=== PATIENT | male | born 1985 | race Asian ===

== ENCOUNTER 2023-04-02 08:00 | Outpatient (CLI) | payer MEDICAID ==
--- NOTE | 2023-04-03 14:00 | XRAY Report ---
PROCEDURE: Foot 3 View BILAT INDICATIONS: PAIN IN LEFT FOOT TECHNIQUE: 3 views of the foot were acquired. COMPARISON: None. FINDINGS: Bones: No fractures or dislocations. No suspicious bony lesions. Soft tissues: No suspicious soft tissue calcifications or masses. IMPRESSION: No visualized acute fracture or dislocation. However, occult injury cannot be excluded. Recommend basil rt interval imaging follow-up in 7-10 days as clinically indicated for additional evaluation. Reviewed by: Jeanna Anna MD on 04/03/2023 1:59 PM PDT Approved by: Jeanna Anna MD on 04/03/2023 1:59 PM PDT Station ID: [id number]
== END 2023-04-02 23:59 | disposition home or self-care (01) ==
LOC: DI.S 08:00
PROVIDERS: ATTEND Registered Nurse
DX: M79.672 Pain in left foot (principal)